=== PATIENT | male | born 1955 | race Caucasian/White ===

== ENCOUNTER → 2017-12-14 10:11 | Outpatient (CLI) | payer MEDICARE | END | disposition home or self-care (01) | LOC: D.CT 10:11 | DX: R06.09 Other forms of dyspnea (principal) ==

== ENCOUNTER → 2020-03-19 09:14 | Outpatient (CLI) | payer MEDICARE | END | disposition home or self-care (01) | LOC: D.HCCECHO 09:14 | PROVIDERS: ATTEND Internal Medicine Cardiovascular Disease | DX: I48.91 Unspecified atrial fibrillation (principal) ==

== ENCOUNTER 2020-12-28 12:52 | Emergency (ER) | payer MEDICARE ==
[~2020-12-28] VITALS: Ht 185.4 cm; Wt 150.0 kg
[2020-12-28 13:34] VITALS: BP 110/59; Ht 185.4 cm; Wt 150.0 kg
== END 2020-12-28 15:18 | disposition left against medical advice (07) ==
LOC: D.ER 12:52
DX: R10.9 Unspecified abdominal pain (principal)